=== PATIENT | female | born 1935 | race Caucasian/White ===

== ENCOUNTER 2019-11-15 15:13 | Outpatient (CLI) | payer MEDICARE, BC | END 2019-11-15 23:59 | disposition home or self-care (01) | LOC: RAD 15:13 | DX: K21.9 Gastro-esophageal reflux disease without esophagitis (principal); R13.14 Dysphagia, pharyngoesophageal phase | CPT/HCPCS: 74230 ==

== ENCOUNTER 2020-08-19 19:52 | Inpatient (IN) | payer MEDICARE, BC ==
[~2020-08-19] VITALS: Ht 167.6 cm; Wt 63.9 kg
[2020-08-19 21:00] LABS: BASOPHILS % (AUTO) 0.6 % (0-1); EOSINOPHILS # (AUTO) 0.1 X10'3 (0-0.9); EOSINOPHILS % (AUTO) 1.8 % (0-6); HEMOGLOBIN 12.8 g/dl (12.0-16.0); LYMPHOCYTES # (AUTO) 1.7 X10'3 (1.1-4.8); LYMPHOCYTES % (AUTO) 20.8 % (21-51); MEAN CORPUSCULAR HEMOGLOBIN 26.8 PG (27.0-31.0); MEAN CORPUSCULAR HGB CONC 32.9 g/dL (33.0-36.5); MEAN CORPUSCULAR VOLUME 81.3 FL (78-98); MEAN PLATELET VOLUME 7.2 FL (7.4-10.4); MONOCYTES # (AUTO) 0.7 X10'3 (0-0.9); MONOCYTES % (AUTO) 8.4 % (2-12); NEUTROPHILS # (AUTO) 5.5 X10'3 (1.8-7.7); NEUTROPHILS % (AUTO) 68.4 % (42-75); PLATELET COUNT 333 X10'3 (140-440); RED BLOOD COUNT 4.79 X10'6 (4.20-5.60); RED CELL DISTRIBUTION WIDTH 14.5 % (11.5-14.5)
[2020-08-19] MEDS ORDERED: temazepam 15mg capsule PO PRN (21:00)
[2020-08-19 21:05] LABS: PARTIAL THROMBOPLASTIN TIME 26 SECONDS (22-32)
[2020-08-19 21:07] LABS: ALANINE AMINOTRANSFERASE 25 U/L (12-78); ALBUMIN 3.7 G/DL (3.4-5.0); ALBUMIN/GLOBULIN RATIO 0.9 (1.1-1.5); ALKALINE PHOSPHATASE 78 IU/L (46-116); ANION GAP 7 (8-16); ASPARTATE AMINO TRANSFERASE 18 U/L (10-37); BILIRUBIN,TOTAL 0.6 MG/DL (0.1-1.0); BLOOD UREA NITROGEN 17 MG/DL (7-18); BUN/CREATININE RATIO 18.5 (6.6-38.0); CALCIUM 9.7 MG/DL (8.5-10.1); CHLORIDE 102 MMOL/L (99-107); CREATININE 0.92 MG/DL (0.40-0.90); GLUCOSE 106 MG/DL (70-104); POTASSIUM 4.1 MMOL/L (3.5-5.1); SODIUM 138 MMOL/L (135-145); TOTAL CARBON DIOXIDE 29.3 MMOL/L (24-32); eGFR 58 ML/MIN
[2020-08-19 21:11] LABS: TROPONIN I < 0.04 NG/ML (0.0-0.05)
[2020-08-19 21:55] LABS: CLARITY,URINE CLEAR (Clear); COLOR,URINE YELLOW (Yellow); GLUCOSE, URINE NEGATIVE (Neg); KETONES,URINE NEGATIVE (Neg); LEUKOCYTE ESTERASE ,URINE TRACE (Neg); NITRITES, URINE NEGATIVE (Neg); OCCULT BLOOD,URINE NEGATIVE (Neg); PH,URINE 6.5 (4.8-8.0); PROTEIN,URINE NEGATIVE (Neg); UROBILINOGEN,URINE 0.2 E.U/dL (0.2-1.0)
[2020-08-19 21:56] LABS: UA COLLECTION TYPE CLN CATCH MIDSTREAM
[2020-08-19 22:01] LABS: BACTERIA,URINE NONE SEEN /HPF (Neg); RBC,URINE NONE SEEN /HPF (0-2); WBC,URINE 0-4 /HPF (0-4)
[2020-08-19 22:02] LABS: SQUAMOUS EPITHELIAL CELL,UR NONE SEEN /LPF (FEW)
[2020-08-19] MEDS ORDERED: diphenhydrAMINE 25mg capsule PO PRN (23:15)
[2020-08-19] MEDS ORDERED: HYDROcodone/acetaminophen 5mg/325mg tablet PO PRN (23:15)
[2020-08-19] MEDS ORDERED: morphine 2 MG/ML inj. syringe IV PRN (23:15)
[2020-08-19] MEDS ORDERED: bisacodyl 10mg suppository rectal RC PRN (23:15)
[2020-08-19] MEDS ORDERED: mag hydrox/Alum hydrox/simeth 30ml oral suspension PO PRN (23:15)
[2020-08-19] MEDS ORDERED: magnesium hydroxide 30ml (MOM) UD suspension PO PRN (23:15)
[2020-08-19] MEDS: normal saline 1000ml 1,000 ML IV SCH (23:15)
[2020-08-19] MEDS ORDERED: acetaminophen 325mg tablet PO PRN ×2 (23:15)
[2020-08-19] MEDS ORDERED: acetaminophen 650mg rectal suppository RC PRN (23:15)
[2020-08-19] MEDS ORDERED: diphenhydrAMINE 50 mg/ml inj IV PRN (23:15)
[2020-08-19] MEDS ORDERED: ondansetron/PF 4mg/2ml inj IV PRN (23:15)
--- NOTE | 2020-08-19 23:27 | NUR ---
Swallow eval performed on patient. Pt shows no signs of difficulty swallowing or aspiration. Pt given a sandwich and yogurt as requested.
[2020-08-19 23:48] LABS: HEMOGLOBIN A1C 6.6 % (4.5-6.2)
--- NOTE | 2020-08-19 23:50 | NUR ---
lab calling to report pt has leukocyte esterase in her urinealysis and it will be sent for culture.
[2020-08-19 23:55] LABS: PHOSPHORUS 4.1 MG/DL (2.3-4.5)
[2020-08-20 00:05] VITALS: BP 164/65
[2020-08-20] MEDS: normal saline 1000ml 1,000 ML IV SCH ×3 (00:21→11:48)
[2020-08-20] MEDS: acyclovir 200 MG capsule PO SCH ×3 (02:15→13:30)
--- NOTE | 2020-08-20 02:25 | NUR ---
pt pulled call light out of wall sat up set bed alarm off forgetful, assisted up to ambulate to br. pt remains very dizzy and unstable in her gait. ambulated with assistance to and from br. pt has bed alarm on and call light attached to her.
--- NOTE | 2020-08-20 06:08 | NUR ---
Problems reprioritized. Patient report given, questions answered & plan of care reviewed with AJIT ESQUIVEL. Addendum: 08/20/20 at 0610 by Jazmyn Ortega RN Amended: Links added.
--- NOTE | 2020-08-20 06:41 | NUR ---
Problems reprioritized. Patient report given, questions answered & plan of care reviewed with AJIT ESQUIVEL. Addendum: 08/20/20 at 0641 by Jazmyn Ortega RN Amended: Links added.
[2020-08-20 07:11] LABS: BASOPHILS # (AUTO) 0.1 X10'3 (0-0.2); EOSINOPHILS # (AUTO) 0.2 X10'3 (0-0.9); EOSINOPHILS % (AUTO) 2.6 % (0-6); HEMATOCRIT 37.4 % (35.0-45.0); HEMOGLOBIN 12.1 g/dl (12.0-16.0); LYMPHOCYTES # (AUTO) 1.7 X10'3 (1.1-4.8); MEAN CORPUSCULAR HEMOGLOBIN 26.4 PG (27.0-31.0); MEAN CORPUSCULAR HGB CONC 32.3 g/dL (33.0-36.5); MEAN CORPUSCULAR VOLUME 81.7 FL (78-98); MEAN PLATELET VOLUME 7.3 FL (7.4-10.4); MONOCYTES # (AUTO) 0.6 X10'3 (0-0.9); MONOCYTES % (AUTO) 8.3 % (2-12); NEUTROPHILS # (AUTO) 4.6 X10'3 (1.8-7.7); NEUTROPHILS % (AUTO) 64.1 % (42-75); PLATELET COUNT 307 X10'3 (140-440); RED BLOOD COUNT 4.57 X10'6 (4.20-5.60); RED CELL DISTRIBUTION WIDTH 14.3 % (11.5-14.5); WHITE BLOOD COUNT 7.2 X10'3 (4.5-11.0)
[2020-08-20] MEDS ORDERED: pantoprazole 40mg Tablet.DR PO SCH (07:30)
--- NOTE | 2020-08-20 07:30 | NUR ---
PAGER ID: [phone] MESSAGE: Renata Jose [id number] Good AM. Pt. ref. head MRI this AM r/t claustrophobia. Doesn't feel she needs to be here. States her dizziness is due to tinnitus and inner ear issues which she has pmx.of. Want PT TILT TABLE? Amy [phone]
[2020-08-20 07:35] LABS: ALANINE AMINOTRANSFERASE 22 U/L (12-78); ALBUMIN 3.4 G/DL (3.4-5.0); ALBUMIN/GLOBULIN RATIO 0.8 (1.1-1.5); ALKALINE PHOSPHATASE 64 IU/L (46-116); ANION GAP 8 (8-16); ASPARTATE AMINO TRANSFERASE 15 U/L (10-37); BILIRUBIN,TOTAL 0.7 MG/DL (0.1-1.0); BLOOD UREA NITROGEN 15 MG/DL (7-18); BUN/CREATININE RATIO 17.6 (6.6-38.0); CALCIUM 9.2 MG/DL (8.5-10.1); CHLORIDE 103 MMOL/L (99-107); CHOL/HDL RATIO 3.3 (0.00-4.99); CHOLESTEROL 176 MG/DL (0-200); CREATININE 0.85 MG/DL (0.40-0.90); GLUCOSE 126 MG/DL (70-104); HDL CHOLESTEROL 53 MG/DL (35-60); LDL CHOLESTEROL 105 MG/DL (50-100); POTASSIUM 3.9 MMOL/L (3.5-5.1); SODIUM 140 MMOL/L (135-145); TOTAL PROTEIN 7.5 G/DL (6.4-8.2); TRIGLYCERIDES 167 MG/DL (20-135); eGFR 64 ML/MIN
[2020-08-20] MEDS ORDERED: heparin, porcine 5000 units/ml vial SQ SCH (08:00)
[2020-08-20 08:06] VITALS: BP 142/63
--- NOTE | 2020-08-20 08:14 | NUR ---
Noted that pt presented with right sided facial weakness, currently documented as A/O x 2 per physical assessment. Recommend BSS with ST to assess need for texture modification. Will continue to follow. Addendum: 08/20/20 at [address] Amended: Links added.
[2020-08-20] MEDS ORDERED: prednisone 10mg tablet PO SCH (08:30)
[2020-08-20] MEDS ORDERED: TRAZ-251 PO (09:21)
[2020-08-20] MEDS ORDERED: HYDROmorphone inj. 0.5 MG/0.5 ML DISP.SYRIN IV ONE (09:50)
[2020-08-20] MEDS ORDERED: LORazepam 2 mg/ml vial IV ONE (09:55)
[2020-08-20] MEDS ORDERED: pneumococcal 23-VAL P-sac vacc 25 mcg/0.5ml vial IMVAC ONE (10:00)
[2020-08-20] MEDS ORDERED: meclizine 12.5mg tablet PO PRN (12:00)
[2020-08-20] MEDS ORDERED: ACYC200C PO (16:45)
[2020-08-20] MEDS ORDERED: MECL-226 PO (16:45)
[2020-08-20] MEDS ORDERED: PRED10TA PO (16:45)
--- NOTE | 2020-08-20 18:16 | NUR ---
Reviewed discharge paperwork with patient and son. Son is stating that patient's forgetful nature is baseline. Pt. is passive and does not pay attention to directions. Discussed with son that discussing with family and mother about a medical and financial POA may be a good idea. Son states there is no POA at this time. Notified pt. that there was a pending culture here and that if they did not hear from the hospital they should call back in 3 day to obtain lab results. Discussed medication with patient and son, discussed possible ASE, and where pt. can lemon picker meds. Charge and MD aware of PT's recommendation for outpatient therapy and aware of recommendation for walker. Patient refuses to wait until walker arrives/ CM aware of need. Family assure hospital staff that someone will attend pt. while waiting for her walker to be delivered tomorrow. Pt. and family notified to make a f/u appointment B[facility] with PCP. CM contact numbers provided to pt. and written education on vertigo provided. Pt. gathered her belongings. No IV to remove. telecom sales consultant already removed IV. Pt. escorted by hospital staff member in a w/c downstairs to her son's car to discharge home.
[2020-08-20] MEDS ORDERED: traZODone 50mg tablet PO SCH (21:00)
--- NOTE | 2020-08-21 13:07 | NUR ---
CASE MANAGEMENT DISCHARGE FOLLOW UP: Spoke with pt via telephone. Reports that she has been better, but is doing okay, a little jittery, some vertigo; denies occular redness/pain/irritation, facial droop, fever, weakness/numbness, trouble swallowing, neck pain/stiffness, SOB. Verbalizes understanding of s/sx requiring further evaluation/emergent assistance. Verbalizes understanding of new and current medications. Verbalizes compliance with MD discharge instructions. Verbalizes understanding of the importance in making/keeping follow-up appointments, states not sure who her PCP is but her daughter will handle that. Pt states that [facility] has not delivered FWW as of this time. States that she thinks she does not need it as her house is very tiny and she can use the [employer] for support. States that she has multiple family members who are either living close by or coming in from out of town that can help her if she needs it. States no further questions/concerns at this time. Addendum: 08/21/20 at 1330 by Delmy Webb RN [id number] T/c to [facility], FWW is scheduled for delivery to pt's home by 1700 today.
== END 2020-08-20 18:16 | disposition home health service (06) | DRG 74 ==
LOC: ER 19:52 → UNDOADMIN 23:15 → SUR 3N 23:15
PROVIDERS: ADMIT Family Medicine; ATTEND Internal Medicine
DX: G51.0 Bell's palsy (principal); E86.0 Dehydration; I12.9 Hypertensive chronic kidney disease with stage 1 through stage 4 chronic kidney disease, or unspecified chronic kidney disease; R42 Dizziness and giddiness; N18.30 Chronic kidney disease, stage 3 unspecified; E11.22 Type 2 diabetes mellitus with diabetic chronic kidney disease; G47.00 Insomnia, unspecified; Z79.899 Other long term (current) drug therapy; Z86.73 Personal history of transient ischemic attack (TIA), and cerebral infarction without residual deficits; Z28.21 Immunization not carried out because of patient refusal
CPT/HCPCS: 36415; 70450; 70551; 71045; 80053; 80061; 81001; 83036; 83735; 83880; 84100; 84443; 84484; 85025; 85610; 85730; 87081; 87088; 92508; 92616; 97110; 97161; 97530; 99285; G0378; J1644; J2060; J7030; J7512; J8597

== ENCOUNTER 2021-03-30 04:28 | Emergency (ER) | payer MEDICARE, BC ==
[~2021-03-30] VITALS: Ht 167.6 cm; Wt 67.5 kg
[~2021-03-30 04:28] MED LIST: ACYC200C30 PO; MECL-226 PO; PRED10TA PO; TRAZ-251 PO
[2021-03-30 05:34] LABS: BASOPHILS # (AUTO) 0.1 X10'3 (0-0.2); BASOPHILS % (AUTO) 0.6 % (0-1); EOSINOPHILS # (AUTO) 0.1 X10'3 (0-0.9); EOSINOPHILS % (AUTO) 0.8 % (0-6); HEMATOCRIT 37.6 % (35.0-45.0); HEMOGLOBIN 12.5 g/dl (12.0-16.0); LYMPHOCYTES # (AUTO) 1.3 X10'3 (1.1-4.8); LYMPHOCYTES % (AUTO) 12.3 % (21-51); MEAN CORPUSCULAR HEMOGLOBIN 27.1 PG (27.0-31.0); MEAN CORPUSCULAR HGB CONC 33.3 g/dL (33.0-36.5); MEAN CORPUSCULAR VOLUME 81.3 FL (78-98); MEAN PLATELET VOLUME 7.7 FL (7.4-10.4); MONOCYTES # (AUTO) 0.7 X10'3 (0-0.9); NEUTROPHILS # (AUTO) 8.4 X10'3 (1.8-7.7); NEUTROPHILS % (AUTO) 79.3 % (42-75); PLATELET COUNT 262 X10'3 (140-440); RED BLOOD COUNT 4.63 X10'6 (4.20-5.60); RED CELL DISTRIBUTION WIDTH 15.7 % (11.5-14.5); WHITE BLOOD COUNT 10.6 X10'3 (4.5-11.0)
[2021-03-30] MEDS ORDERED: fentaNYL/PF 50MCG/1 ML 2ML syringe IV ONE (05:35)
[2021-03-30 05:38] LABS: ALANINE AMINOTRANSFERASE 17 U/L (12-78); ALBUMIN 3.5 G/DL (3.4-5.0); ALBUMIN/GLOBULIN RATIO 0.9 (1.1-1.5); ALKALINE PHOSPHATASE 84 IU/L (46-116); ANION GAP 6 (8-16); ASPARTATE AMINO TRANSFERASE 22 U/L (10-37); BILIRUBIN,TOTAL 0.7 MG/DL (0.1-1.0); BLOOD UREA NITROGEN 23 MG/DL (7-18); BUN/CREATININE RATIO 22.3 (6.6-38.0); CALCIUM 9.3 MG/DL (8.5-10.1); CHLORIDE 102 MMOL/L (99-107); CREATININE 1.03 MG/DL (0.40-0.90); GLUCOSE 142 MG/DL (70-104); POTASSIUM 4.1 MMOL/L (3.5-5.1); SODIUM 138 MMOL/L (135-145); TOTAL CARBON DIOXIDE 29.7 MMOL/L (24-32); TOTAL PROTEIN 7.6 G/DL (6.4-8.2); eGFR 51 ML/MIN
[2021-03-30] MEDS ORDERED: LIDOcaine 1% 30ml preserv. free vial IJ ONE (05:40)
[2021-03-30 05:42] LABS: MAGNESIUM 2.1 MG/DL (1.5-2.4); TROPONIN I < 0.04 NG/ML (0.0-0.05)
[2021-03-30] MEDS ORDERED: iohexol 350MG/ML 100ml bottle IV ONE (05:52)
[2021-03-30] MEDS ORDERED: TRAM50TA2 PO (07:04)
[2021-03-30] MEDS ORDERED: traMADol 50MG tablet PO ONE (07:05)
[2021-03-30 07:28] VITALS: BP 155/68
== END 2021-03-30 07:30 | disposition home or self-care (01) ==
LOC: ER 04:29
DX: S22.070A Wedge compression fracture of T9-T10 vertebra, initial encounter for closed fracture (principal); Z20.822 Contact with and (suspected) exposure to COVID-19; M54.6 Pain in thoracic spine; R42 Dizziness and giddiness; G51.0 Bell's palsy; Z79.899 Other long term (current) drug therapy; X58.XXXA Exposure to other specified factors, initial encounter; Y93.89 Activity, other specified; Y92.89 Other specified places as the place of occurrence of the external cause; Y99.8 Other external cause status
CPT/HCPCS: 20552; 36415; 70450; 71045; 71275; 74174; 80053; 83735; 84484; 85025; 87635; 93005; 96374; 99285; C9803; J3010; Q9967

== ENCOUNTER 2022-06-26 20:03 | Emergency (ER) | payer MEDICARE, BC ==
[~2022-06-26] VITALS: Ht 170.2 cm; Wt 64.5 kg
[2022-06-26 20:09] VITALS: BP 157/76
--- NOTE | 2022-06-26 20:37 | NUR ---
LEFT WRIST PAIN RELATED TO MECHANICAL FALL WHILE DANCING. PT REPORTS PAIN AT 8/10 WHEN MOVING. CMS INTACT.
[2022-06-26] MEDS ORDERED: ketorolac trometh inj. 60 MG/2 ML VIAL IM ONE (20:55)
[2022-06-26] MEDS ORDERED: ketorolac trometh. 30mg/ml inj. IM ONE (21:00)
--- NOTE | 2022-06-26 21:15 | NUR ---
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
[2022-06-26] MEDS ORDERED: IBUP-1985 PO (21:26)
[2022-06-26] MEDS ORDERED: HYDR-3965 PO (21:26)
[2022-06-26] MEDS ORDERED: HYDROcodone/acetaminophen 5mg/325mg tablet PO ONE (21:30)
== END 2022-06-26 21:45 | disposition home or self-care (01) ==
LOC: ER 20:04
DX: S52.592A Other fractures of lower end of left radius, initial encounter for closed fracture (principal); Z79.899 Other long term (current) drug therapy; W18.39XA Other fall on same level, initial encounter; Y93.89 Activity, other specified; Y92.89 Other specified places as the place of occurrence of the external cause; Y99.8 Other external cause status
CPT/HCPCS: 29085; 73110; 96372; 99283; J1885; A4565; A6449